=== PATIENT | female | born 1950 | race Caucasian/White ===

== ENCOUNTER → 2018-01-31 | Outpatient (CLI) | payer OTHER ==
[~2018-01-31] MED LIST: ACET-1138 PO; ASPI-320 PO; CHOL100010 PO; CLR10 PO; COEN1CAP7 PO; ESTRADIOL PATCH TOP; FLUT0.15 INTNAS; LEVO175T PO; LISI-725 PO; MECL1TAB42 PO; MULT-506 PO; OXYSR10 PO; RXC5 PO; SNK PO; VITAMIN B12 PO
--- NOTE | 2018-01-31 23:22 | DIAGNOSTIC IMAGING REPORT ---
BONE SCAN 3PHASE WHOLE BODY HISTORY: 67 years-old Female LEFT PAINFUL TOTAL KNEE h/o THYROID CA acute left knee pain with history of thyroid carcinoma COMPARISON: Left knee radiographs 05/15/2016 TECHNIQUE: Anterior and posterior whole-body scintigraphic images from bone scan were obtained utilizing 25 mCi technetium 99 MDP. Additional the bilateral lower extremities were obtained for a 3 phase bone scan FINDINGS: Whole-body scintigraphic images demonstrate mild degenerative related uptake about the right greater than left feet and right knee, greatest within the medial compartment and also within the bilateral shoulders and to a lesser extent within the spine. Ill-defined areas of slightly increased uptake about the bilateral posterior fourth ribs likely secondary to degenerative uptake seen within the bilateral acromioclavicular joints. Physiologic uptake about the kidneys, soft tissues and urinary bladder. Urinary contamination is noted within the groin soft tissues. Photopenia about the left knee compatible with left knee arthroplasty with mild periarticular uptake compatible with physiologic remodeling changes. There is symmetric flow about the bilateral knees. Slightly increased blood pool about the right knee unknown etiology, also with mildly increased delayed uptake about the right knee, notably within the region of the patellofemoral and medial compartments. Mild delayed uptake about the left knee is likely physiologic. IMPRESSION: 1. Left knee arthroplasty with mild periarticular uptake likely related to physiologic remodeling changes. 2. Increased delayed uptake about the right knee, notably within the patellofemoral and medial compartments is likely on a degenerative basis. The above report was generated using voice recognition software. It may contain grammatical, syntax or spelling errors. Electronically signed by: Efrain Erazo M.D. 01/31/2018 11:21 PM Dictated Date/Time: 01/31/2018 11:13 PM
== END | disposition home or self-care (01) ==
LOC: C.NUCL 16:19
PROVIDERS: ATTEND Physician Assistant Medical
DX: T84.84XD Pain due to internal orthopedic prosthetic devices, implants and grafts, subsequent encounter (principal)